=== PATIENT | female | born 1990 | race Caucasian/White ===

== ENCOUNTER 2020-02-28 15:14 | Outpatient (RCR) | payer BC | END 2020-05-06 | disposition home or self-care (01) | PROVIDERS: ATTEND Physical Therapist | DX: M54.2 Cervicalgia (principal); M54.6 Pain in thoracic spine ==

== ENCOUNTER 2020-10-06 13:45 | Outpatient (RCR) | payer BC | END 2020-10-06 14:14 | disposition home or self-care (01) | PROVIDERS: ATTEND Physical Therapist | DX: M25.552 Pain in left hip (principal); M25.551 Pain in right hip ==